=== PATIENT | male | born 1970 | race Caucasian/White ===

== ENCOUNTER 2020-02-06 15:15 | Emergency (ER) | payer OTHER, SELFPAY ==
[2020-02-06 15:19] VITALS: BP 150/97; PULSE 108; RESP 16; TEMP 36.8; O2SAT 100
--- NOTE | 2020-02-06 17:21 | ED.SKABFB ---
HPI - Skin/Abscess/Foreign Bdy General Chief complaint: Skin/Abscess/Foreign Body Stated complaint: rash Time Seen by Provider: 02/06/20 15:50 Source: patient Mode of arrival: ambulatory Limitations: no limitations History of Present Illness HPI narrative: This is a 49 year old male that presents to the ER for itchy rash x 5 years. Reports flares of the rash intermittently. He has been on multiple medications for this with little relief. He has not seen a [facility] for this. Denies fever. Related Data Home Medications Medication Instructions Recorded Confirmed albuterol mcg INHALATION 02/06/20 omeprazole 20 mg PO DAILY 02/06/20 02/06/20 Allergies Allergy/AdvReac Type Severity Reaction Status Date / Time No Known Allergies Allergy Verified 02/06/20 16:18 Review of Systems Review of Systems: Narrative: CONSTITUTIONAL: Denies fever SKIN: Reports rash and itching. All systems reviewed & are unremarkable except as noted in HPI and below PMFSH Past Medical History Medical History (Updated 02/06/20 @ 17:24 by Juanita Triplett PA-C) History of asthma History of gastroesophageal reflux (GERD) Exam Narrative: Exam Narrative: GENERAL: Well-appearing, well-nourished, and in no acute distress. HEAD: Normocephalic, atraumatic. EYES: EOMI. EXTREMITIES: Normal range of motion. No edema. SKIN: Warm, dry. Red, papular rash with excoriations present on the chest, back, arms and legs. NEURO: No focal deficits. Alert and oriented x3. PSYCH: Normal mood and affect Course Vital Signs Vital signs: Vital Signs Temperature 98.3 F 02/06/20 15:19 Pulse Rate 108 H 02/06/20 15:19 Respiratory Rate 16 02/06/20 15:19 Blood Pressure 150/97 H 02/06/20 15:19 Pulse Oximetry 100 02/06/20 15:19 Temperature 98.3 F 02/06/20 15:19 Pulse Rate 108 H 02/06/20 15:19 Respiratory Rate 16 02/06/20 15:19 Blood Pressure 150/97 H 02/06/20 15:19 Pulse Oximetry 100 02/06/20 15:19 MDM - Skin/Abscess/Foreign Bdy MDM Narrative Medical decision making narrative: Patient presents to the ER for itchy rash. Reports he has had this for 5 years now. Does not report much improvement with any therapy he has received thus far. Will be instructed on antihistamines. Was instructed to follow up with a [facility] [employer] [facility]. Patient is stable and felt appropriate for further outpatient evaluation. He was given warnings to return to the ER Critical Care Time Critical Care Time Critical Care Time: No Discharge Plan Discharge Clinical Impression: Rash and nonspecific skin eruption Patient Disposition: Home, Self-Care Condition: Stable Instructions: Acute Rash (ED) Additional Instructions: Return to the emergency department if you experience fever, redness and swelling of your wounds, abnormal drainage from your wounds, or any other symptoms that are concerning to you Take a Pepcid and Claritin daily. Benadryl as needed for severe itching. Over the counter steroid cream to the area as needed Follow-up with Dermatology Prescriptions: No Action albuterol 90 mcg/actuation Aerosol INHALATION RF: 0 omeprazole 20 mg Tablet,Delayed Release (Dr/Ec) 20 mg PO DAILY RF: 0 Follow-up/Referrals: Osiel Mancia M.D. [Physician] - 1 Week PHYSICIAN,BREAK UP WORKER [Primary Care Provider] -
== END 2020-02-06 17:39 | disposition home or self-care (01) ==
PROVIDERS: Emergency Provider Emergency Medicine
DX: R21 Rash and other nonspecific skin eruption (principal); J45.909 Unspecified asthma, uncomplicated; K21.9 Gastro-esophageal reflux disease without esophagitis
CPT/HCPCS: 99281

== ENCOUNTER 2022-10-04 16:56 | Emergency (ER) | payer OTHER, SELFPAY ==
--- NOTE | ~2022-10-04 | CT_ITS ---
Clinical Indication: Chest pain CT Scan of the Chest with Contrast: Technique: Contiguous sections were acquired throughout the chest after intravenous administration of 100 cc of Omnipaque 350. Dose reduction technique was used on this scan by utilizing automated expos ure control and iterative reconstruction technique. The dose-length product (DLP) was 438.99 mGy-cm. Findings: There is no evidence of any significant mediastinal, hilar or axillary lymphadenopathy. There is no f illing defect in the pulmonary arterial tree to suggest pulmonary embolus. There is no evidence of ao rtic dissection or aneurysm. There is no evidence of pleural or pericardial effusion. Numerous scattered calcified granulomas are present throughout both lungs. There is probable focal sc arring versus other groundglass opacity at the inferior right upper lobe (axial image 71). Images through the upper abdomen reveal no abnormalities. Impression: No evidence of pulmonary embolus, aortic dissection, or aortic aneurysm. Probable focal scarring versus other groundglass opacity at the inferior right upper lobe. Evidence of prior granulomatous disease. Reviewed, dictated and finalized at [facility] and [facility]. Impression: No evidence of pulmonary embolus, aortic dissection, or aortic aneurysm. Probable focal scarring versus other groundglass opacity at the inferior right upper lobe. Evidence of prior granulomatous disease.
--- NOTE | 2022-10-04 20:19 | ECG_ITS ---
Measurements Intervals [place] Rate: 107 P: 57 [place]: 128 QRS: 48 QRSD: 101 T: 59 QT: 343 QTc: 458 Interpretive Statements SINUS TACHYCARDIA NO PREVIOUS ECG AVAILABLE FOR COMPARISON Electronically Signed On 10-05-2022 13:47:49 CDT by Gabrielle Garcia M.D.
--- NOTE | 2022-10-04 20:19 | ED.BACK ---
HPI - Back Pain/Injury General Chief Complaint: Back Pain/Injury Time Seen by Provider: 10/04/22 20:06 History of Present Illness HPI Narrative: Patient is a 52-year-old male with a history of COPD here for evaluation of atraumatic thoracic back pain x10 days. Patient states that the pain is there with deep breaths and when he coughs. It remains in his thoracic area and does not radiate. He has a history of COPD and reports chronic shortness of breath, no worse than usual. Again he has had his usual chronic productive cough of clear sputum. He denies any pain in his chest, nausea, vomiting, diarrhea, abdominal pain, diaphoresis. Related Data Home Medications Medication Instructions Recorded Confirmed albuterol 90 mcg/actuation aerosol mcg inhalation 02/06/20 inhaler omeprazole 20 mg tablet,delayed 20 mg PO DAILY 02/06/20 02/06/20 release Allergies Allergy/AdvReac Type Severity Reaction Status Date / Time No Known Allergies Allergy Verified 02/06/20 16:18 Review of Systems Review of Systems: Gen.: Denies fevers or chills Eyes: Denies eye pain or visual change ENT: Denies congestion Respiratory: Denies shortness of breath or cough CV: Denies chest pain or palpitations GI: Denies abdominal pain nausea, emesis or diarrhea denies burning, urgency, frequency or hematuria Musculoskeletal: Reports back pain Neuro: Denies numbness, tingling, weakness or focal weakness Skin: Denies rash Except as documented, all other systems reviewed and negative PMFSH Past Medical History Medical History History of asthma History of gastroesophageal reflux (GERD) Exam Narrative: APPEARANCE: Well appearing, no pain in distress, well-nourished. Head: Normocephalic and atraumatic. EYES: PERRLA/EOMI, conjunctivae clear NOSE: No nasal drainage EARS: External ear normal in appearance THROAT: Oropharynx is clear. Mucous membranes are moist. NECK: Supple. No adenopathy, no masses. RESPIRATORY: Diminished breath sounds throughout. Airway patent, respirations nonlabored. Clear to auscultation bilaterally, no rales, rhonchi, wheezing. CARDIOVASCULAR: Regular rate and rhythm without murmurs, rubs, or gallops. ABDOMINAL: Normoactive bowel sounds. Soft, nontender, nondistended. No rebound tenderness or guarding. MUSCULOSKELETAL: Extremities are warm and well-perfused. Moves all extremities well. No edema. NEURO: Normal speech. No focal neurologic deficits. SKIN: Skin is warm and dry. No rashes. PSYCHIATRIC: Normal affect/mood.. Course Vital Signs Vital signs: Vital Signs Temperature 97.8 F 10/04/22 22:06 Pulse Rate 105 H 10/04/22 22:06 Respiratory Rate 15 10/04/22 22:06 Blood Pressure 138/102 H 10/04/22 22:06 Pulse Oximetry 98 10/04/22 22:06 Temperature 97.8 F 10/04/22 22:06 Pulse Rate 105 H 10/04/22 22:06 Respiratory Rate 15 10/04/22 22:06 Blood Pressure 138/102 H 10/04/22 22:06 Pulse Oximetry 98 10/04/22 22:06 MDM - Back Pain/Injury MDM Narrative Medical decision making narrative: 52-year-old male here for evaluation of atraumatic midthoracic back pain worse with cough x7 days. He is nontoxic in appearance and has normal vital signs, does have some diminished breath sounds throughout but no midline tenderness along palpation of the T-spine. Basic labs unremarkable. EKG and troponin nonischemic. CTA is negative for PE or dissection, does show some chronic scarring in the lobes that may be due to COPD. Likely pleurisy. Patient feeling improved after Toradol. Will discharge home to follow-up with PMD, we discussed return precautions and he voiced understanding. Lab Data 10/04/22 20:28 10/04/22 20:28 Labs: Lab Results 10/04/22 Range/Units 20:28 WBC 8.9 (4.5-10.0) K/mm3 RBC 5.65 (4.6-6.20) M/mm3 Hgb 15.5 (14.0-18.0) g/dL Hct 49.2 (42.0-52.0) % MCV 87.1 (80
[2022-10-04 20:40] LABS: Basophils Absolute Auto 0.1 K/mm3 (0.0-0.1); Basophils Percent Auto 0.6 % (0.2-1.2); Eosinophils Absolute Auto 0.2 K/mm3 (0-0.3); Eosinophils Percent Auto 1.8 % (0-4.4); Hematocrit 49.2 % (42.0-52.0); Hemoglobin 15.5 g/dL (14.0-18.0); Immature Granulocyte Absolute 0.03 K/mm3 (0.00-0.031); Immature Granulocyte Percent A 0.3 % (0-0.5); Lymphocytes Absolute Auto 2.29 K/mm3 (0.9-3.2); Lymphocytes Percent Auto 25.6 % (18.3-44.2); Mean Corpuscular HGB Conc 31.5 g/dl (32-36); Mean Corpuscular Hemoglobin 27.4 pg (26-34); Mean Corpuscular Volume 87.1 fl (80-100); Monocytes Absolute Auto 0.7 K/mm3 (0.1-0.6); Monocytes Percent Auto 7.6 % (2.6-8.5); Neutrophils Absolute Auto 5.7 K/mm3 (1.3-6.7); Neutrophils Percent Auto 64.1 % (45.5-73.1); Platelet Count Result 411 k/mm3 (150-375); Red Blood Count 5.65 M/mm3 (4.6-6.20); Red Cell Distribution Width 15.4 % (11.5-14.5); White Blood Count 8.9 K/mm3 (4.5-10.0)
[2022-10-04 20:56] LABS: Alanine Aminotransferase 27 U/L (6-50); Albumin Level 4.5 g/dL (3.5-5.1); Alkaline Phosphatase 116 U/L (38-126); Anion Gap 9 mmol/L (8-16); Aspartate Amino Transferase 38 U/L (17-59); Bilirubin,Total 0.8 mg/dL (0.2-1.3); Blood Urea Nitrogen 10 mg/dL (9-20); Calcium 8.8 mg/dL (8.4-10.2); Carbon Dioxide 30 mmol/L (22-30); Chloride 101 mmol/L (98-107); Estimated Glomerular Filt Rate > 60; Glucose 103 mg/dL (65-110); Potassium 4.1 mmol/L (3.4-5.0); Sodium 140 mmol/L (137-145)
[2022-10-04 21:06] LABS: NT Pro B Type Natriuretic Pept 574 pg/mL (19.9-100); Troponin I < 0.012 ng/mL (0.000-0.034)
[2022-10-04] MEDS: KETOROLAC 15 MG/ML VIAL (*BKC) IV PUSH (21:24)
[2022-10-04 22:06] VITALS: BP 138/102; PULSE 105; RESP 15; TEMP 36.6; O2SAT 98
== END 2022-10-04 22:07 | disposition home or self-care (01) ==
PROVIDERS: Emergency Provider Physician Assistant
DX: R09.1 Pleurisy (principal); J44.9 Chronic obstructive pulmonary disease, unspecified; K21.9 Gastro-esophageal reflux disease without esophagitis; Z79.51 Long term (current) use of inhaled steroids
CPT/HCPCS: 36415; 71275; 80053; 83880; 84484; 85025; 93005; 96374; 99284; J1885; Q9967